=== PATIENT | female | born 1990 | race Hispanic/Latino ===

== ENCOUNTER 2018-01-23 21:31 | Emergency (ER) | payer SELFPAY ==
[2018-01-23] MEDS ORDERED: LIDOCAINE HCL MPF 1% 5ML VIAL ONE (21:49)
[2018-01-23] MEDS ORDERED: CEFTRIAXONE SODIUM 1 GM ONE (21:49)
[2018-01-23] MEDS ORDERED: AZITHROMYCIN 250 MG TABLET PO ONE (21:49)
[2018-01-23 22:17] LABS: APPEARANCE,URINE Clear (CLEAR); BILIRUBIN,URINE Negative (NEGATIVE); COLOR,URINE Yellow (YELLOW); GLUCOSE, URINE (UA) Negative (NEGATIVE); KETONES,URINE Trace mg/dL (NEGATIVE); LEUKOCYTE ESTERASE ,URINE Negative (NEGATIVE); NITRATE,URINE Negative (NEGATIVE); OCCULT BLOOD,URINE Negative (NEGATIVE); PH,URINE 5.5 (5.0-8.0); PROTEIN,URINE POS 1+ (NEGATIVE)
[2018-01-23 22:50] LABS: BACTERIA,URINE Few /HPF (None Seen); RBC,URINE 0-1 /HPF (0-1); WBC,URINE 0-1 /HPF (0-1)
== END 2018-01-23 22:40 | disposition home or self-care (01) ==
LOC: EDH 21:31
DX: Z20.2 Contact with and (suspected) exposure to infections with a predominantly sexual mode of transmission (principal); R10.2 Pelvic and perineal pain
CPT/HCPCS: 81001; 87486; 87797; 96372; 99284; J0696; J3490